=== PATIENT | male | born 1985 | race Two or more races ===

== ENCOUNTER 2017-05-01 08:54 | Observation (INO) | payer OTHER ==
--- NOTE | 2017-05-01 09:17 | PDOC ---
History of Present Illness - General History Source: Patient, EMS Exam Limitations: No Limitations - History of Present Illness Initial Comments: 05/01/17 09:24 The patient is a 31 year old male with no significant past medical history, BIBA to the emergency department today for further evaluation of headache after found unresponsive at work this morning. As per EMS, a co worker called 911 after finding the patient unresponsive with associated slowed breathing and pinpoint pupils. EMS gave the patient a 0.5 mg dose of narcan on route. The patient reports some nausea secondary to his headache. The patient denies any drug use. PAST MEDICAL HISTORY: No significant history reported PAST SURGICAL HISTORY: No significant history reported FAMILY HISTORY: No pertinent history reported SOCIAL HISTORY: Reports previous cokes use (years ago) ALLERGIES: As per nursing notes MEDICATIONS: Reviewed <Austyn Grace - Last Filed: 05/01/17 10:21> - General History Source: Patient, Old Records Exam Limitations: No Limitations, Language Barrier <Oralia Sexton - Last Filed: 05/01/17 17:07> - General Chief Complaint: Overdose Stated Complaint: OVERDOSE Time Seen by Provider: 05/01/17 09:08 Past History <Austyn Grace - Last Filed: 05/01/17 10:21> - Immunization History Immunization Up to Date: No - Psycho/Social/Smoking Cessation Hx Anxiety: No Suicidal Ideation: No Smoking History: Never smoked Have you smoked in the past 12 months: No Hx Alcohol Use: No Drug/Substance Use Hx: No Substance Use Type: None <Oralia Sexton - Last Filed: 05/01/17 17:07> - Past Medical History Allergies/Adverse Reactions: Allergies Allergy/AdvReac Type Severity Reaction Status Date / Time No Known Allergies Allergy Verified 05/01/17 09:26 Home Medications: Ambulatory Orders NK [No Known Home Medication] 05/01/17 Review of Systems - Review of Systems Able to Perform ROS?: Yes Comments:: 05/01/17 09:24 CONSTITUTIONAL: Absent: fever, chills, diaphoresis, generalized weakness, malaise, loss of appetite HEENT: Present: Pinpoint pupils Absent: rhinorrhea, nasal congestion, throat pain, throat swelling, difficulty swallowing, mouth swelling, ear pain, eye pain, visual Changes CARDIOVASCULAR: Absent: chest pain, syncope, palpitations, irregular heart rate, lightheadedness , peripheral edema RESPIRATORY: Present: Slowed breathing Absent: cough, shortness of breath, dyspnea with exertion, orthopnea, wheezing, stridor, hemoptysis GASTROINTESTINAL: Absent: abdominal pain, abdominal distension, \vomiting, diarrhea, constipation , melena, hematochezia GENITOURINARY: Absent: dysuria, frequency, urgency, hesitancy, hematuria, flank pain, genital pain MUSCULOSKELETAL: Absent: myalgia, arthralgia, joint swelling SKIN: Absent: rash, itching, pallor HEMATOLOGIC/IMMUNOLOGIC: Absent: easy bleeding, easy bruising, lymphadenopathy, frequent infections ENDOCRINE: Absent: unexplained weight gain, unexplained weight loss, heat intolerance, cold intolerance NEUROLOGIC: Present: Headache, nasusea Absent: focal weakness or paresthesias, dizziness, unsteady gait, seizure, mental status changes, bladder or bowel incontinence PSYCHIATRIC: Absent: anxiety, depression, suicidal or homicidal ideation, hallucinations. <Austyn Grace - Last Filed: 05/01/17 10:21> *Physical Exam - Physical Exam Comments: 05/01/17 09:24 GENERAL: Well developed, well nourished. Awake and alert. In no acute distress. HEENT: (+) Normocephalic, atraumatic. With bilateral pinpoint pupils. EOMI. No conjunctival pallor. Sclera are non-icteric. Moist mucous membranes. Oropharynx is clear. NECK: Supple. Full ROM. No JVD. Carotid pulses 2+ and symmetric, without bruits. No thyromegaly. No lymphadenopathy. CARDIOVASCULAR: Regular rate and rhythm. No murmurs, rubs, or gallops. Distal pulses are 2+ and symmetric. PULMONARY: No evidence of respiratory distress. Lungs clear to auscultation bilaterally. No wheezing, rales or rhonchi. ABDOMINAL: Soft. Non-tender. Non-distended. No rebound or guarding. No organomegaly. Normoactive bowel sounds. MUSCULOSKELETAL Normal range of motion at all joints. No bony deformities or tenderness. No CVA tenderness. EXTREMITIES: No cyanosis. No clubbing. No edema. No calf tenderness. SKIN: (+) Diaphoretic, warm and dry. Normal capillary refill. No rashes. No jaundice. NEUROLOGICAL: Alert, awake, appropriate. Cranial nerves 2-12 intact. No deficits to light touch and temperature in face, upper extremities and lower extremities. No motor deficits in the in face, upper extremities and lower extremities. Normoreflexic in the upper and lower extremities. Normal speech. Toes are downgoing bilaterally. Gait is normal without ataxia. PSYCHIATRIC: Cooperative. Good eye contact. Appropriate mood and affect. <Austyn Grace - Last Filed: 05/01/17 10:21> Heart Score/ECG Review - ECG Impressions Comment:: 05/01/17 09:33 TEST: ECG. IMPRESSION: Normal sinus rhythm. Possible left atrial enlargement. RSR or QR pattern in V1 suggest right ventricular conduction delay. Borderline ECG. <Austyn Grace - Last Filed: 05/01/17 10:21> ED Treatment Course - LABORATORY CBC & Chemistry Diagram: 05/01/17 09:40 05/01/17 09:40 - RADIOLOGY Radiograph Interpretation: 05/01/17 10:09 EXAM#: TYPE/EXAM: RESULT: [id number] RAD/CHEST X-RAY PORTABLE* HISTORY PROVIDED: Headache. A single frontal portable projection of the chest at 9:32 AM is submitted. The heart size is within normal limits. The lung echols are free of pulmonary infiltrates or pleural effusions. IMPRESSION: Normal chest. Reported By: Polo Rice MD 05/01/17 0958 05/01/17 10:21 EXAM#: TYPE/EXAM: RESULT: [id number] CT/HEAD CT WITHOUT CONTRAST HISTORY PROVIDED : Headache TECHNIQUE: Sequential axial images were obtained from the base of the skull to the vertex. There is no evidence of acute intracranial hemorrhage, mass lesions or infarctions. The visualized paranasal sinuses are clear. IMPRESSION: Normal CT scan of the head. No evidence of acute intracranial pathology. Reported By: Polo Rice MD 05/01/17 1017 <Austyn Grace - Last Filed: 05/01/17 10:21> - LABORATORY CBC & Chemistry Diagram: 05/01/17 09:40 05/01/17 09:40 <Oralia Sexton - Last Filed: 05/01/17 17:07> Medical Decision Making - Medical Decision Making 05/01/17 09:16 31-year-old male presents to the emergency department by EMS with complaints of headache after found unresponsive with depressed respirations responded to Narcan 0.5 mg IV. Differential diagnosis includes but is not limited to: Opioid overdose, opioid use, intracranial process, opioid withdrawal, electrolyte abnormality, dehydration, toxic/metabolic derangement. Plan: 1. Labs 2. Toxicology panel 3 CT head 4. Cardiac and respiratory monitoring 5. Observe and reevaluate 05/01/17 17:05 Addendum: Labs were reviewed and are noted in the EMR. The patient is now more awake, alert and oriented x 3. He does not remember the events of today but says that for the past few weeks he has been having chest pain. Initial CK was elevated but troponin was negative. Will admit to tele obs for serial cardiac enzymes and cardiac echo, syncope work-up. <Oralia Sexton - Last Filed: 05/01/17 17:07> *DC/Admit/Observation/Transfer - Attestations Scribe Attestion: 05/01/17 09:25 Documentation prepared by Austyn Grace, acting as medical driver for Oralia Sexton MD. <Austyn Grace - Last Filed: 05/01/17 10:21> - Discharge Dispostion Admit: Yes - Attestations Physician Attestion: 05/01/17 09:17 I, Dr. Oralia Sexton, attest that the scribes documentation that appears above has been prepared under my direction and personally reviewed by me in its entirety. I confirmed that the note above accurately reflects all work, treatment, procedures, and medical decision-making performed by me. <Oralia Sexton - Last Filed: 05/01/17 17:07> Diagnosis at time of Disposition: Precordial pain, Syncope - Discharge Dispostion Condition at time of disposition: Stable
[2017-05-01] MEDS ORDERED: ONDANSETRON 4 MG/2 ML VIAL IVPUSH ONE (09:18)
[2017-05-01] MEDS ORDERED: SODIUM CHLORIDE 1,000 ML IV STA ×3 (09:18→14:30)
[2017-05-01] MEDS ORDERED: ONDANSETRON 4 MG/2 ML VIAL ONE (09:24)
[2017-05-01 09:26] VITALS: BMI 26.6
[2017-05-01 09:58] LABS: BASOPHIL 0.8 % (0-2.0); EOSINOPHIL 0.8 % (0-4.5); MCH 33.8 pg (25.7-33.7); MEAN CELL VOLUME 96.5 fl (80-96); MEAN PLT VOLUME 8.2 fl (7.5-11.1); NEUTROPHILS 56.8 % (42.8-82.8); PLATELET COUNT 242 K/MM3 (134-434); RDW 12.4 % (11.9-15.9); WHITE BLOOD COUNT 6.8 K/mm3 (4.0-10.0)
[2017-05-01 10:16] LABS: MAGNESIUM 2.1 mg/dL (1.8-2.4); PHOSPHOROUS 3.8 mg/dL (2.5-4.9)
[2017-05-01 10:21] LABS: ALBUMIN 3.8 g/dl (3.4-5.0); ANION GAP 9 (8-16); CALCIUM 8.3 mg/dL (8.5-10.1); CO2 27 mmol/L (21-32); CREATININE 0.8 mg/dL (0.7-1.3); GLUCOSE,RANDOM 135 mg/dL (74-106); SGOT/AST 31 U/L (15-37); SGPT/ALT 37 U/L (12-78); TOT PROT 6.5 g/dl (6.4-8.2)
[2017-05-01 10:24] LABS: ALK PHOS 58 U/L (45-117); TROPONIN I < 0.02 ng/ml (0.00-0.05)
[2017-05-01 13:27] LABS: URINE APPEARANCE CLEAR; URINE BILIRUBIN NEGATIVE (NEGATIVE); URINE BLOOD NEGATIVE (NEGATIVE); URINE COLOR YELLOW; URINE GLUCOSE (UA) NEGATIVE (NEGATIVE); URINE KETONE TRACE (NEGATIVE); URINE LEUK ESTERASE NEGATIVE (NEGATIVE); URINE NITRITE NEGATIVE (NEGATIVE); URINE UROBILINOGEN NEGATIVE E.U./dl (0.2-1.0)
[2017-05-01 13:35] LABS: URINE PROTEIN 1+ (NEGATIVE)
[2017-05-01 13:39] LABS: URINE MUCUS FEW; URINE WBC 3 /hpf (3-5)
[2017-05-01 14:03] LABS: URINE MARIJUANA THC NEGATIVE ng/ml (CUTOFF=50)
--- NOTE | 2017-05-01 14:39 | EKG ---
Test Reason : Blood Pressure : / mmHG Vent. Rate : 086 BPM Atrial Rate : 086 BPM P-R Int : 184 ms QRS Dur : 124 ms QT Int : 384 ms P-R-T Axes : 072 069 058 degrees QTc Int : 459 ms NORMAL SINUS RHYTHM POSSIBLE LEFT ATRIAL ENLARGEMENT RSR' OR QR PATTERN IN V1 SUGGESTS RIGHT VENTRICULAR CONDUCTION DELAY BORDERLINE ECG NO PREVIOUS ECGS AVAILABLE Confirmed by LEBRON ROSADO MD ([id number]) on 05/01/2017 2:38:32 PM Referred By: Confirmed By:LEBRON ROSADO MD
[2017-05-01 16:33] LABS: TROPONIN I < 0.02 ng/ml (0.00-0.05)
--- NOTE | 2017-05-01 18:07 | PN ---
Teaching Attending Note Name of Resident: Matthew Jeong ATTENDING PHYSICIAN STATEMENT I saw and evaluated the patient. I reviewed the resident's note and discussed the case with the resident. I agree with the resident's findings and plan as documented. SUBJECTIVE: This is a 31 year old man with no significant history who was found unresponsive at work this morning. A co-worker called EMS who found him with decreased respirations and pinpoint pupils. He was given Narcan and brought in to the ER. On arrival, he complained of headache and nausea. He reports that while mopping the floor, he became weak. He has been having chest pain. OBJECTIVE: Vital Signs Period Temp Pulse Resp BP Sys/Decker Pulse Ox Last 24 Hr 98.0 F 62-91 11-18 98-128/66-87 95-100 HEART: S1S2, RRR LUNGS: Clear ABDOMEN: Soft, non-tender, non-distended, normal BS EXTREMITIES: No edema ASSESSMENT AND PLAN: This is a 31 year old man with no past history who presented to the ER after passing out while mopping. He reports having chest pain and headache. 1. Syncope - Monitor on telemetry 2. Chest pain with abnormal EKG ([place] depression, RBBB) - Monitor on telemetry - Echocardiogram - Ibuprofen - Cardiology consult
[2017-05-01] MEDS ORDERED: ONDANSETRON 4 MG/2 ML VIAL IVPB PRN (18:22)
[2017-05-01] MEDS ORDERED: ACETAMINOPHEN 325 MG TABLET (FP) PO PRN (18:22)
--- NOTE | 2017-05-01 18:22 | HP ---
CHIEF COMPLAINT: Headache and chest pain PCP: Non-staff physician HISTORY OF PRESENT ILLNESS: 31 yo with no significant medical history BIBEMS after being found unresponsive by coworker at work this morning. Patient speaks limited Kenyan and most history was obtained from ED chart and his friend via phone. 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 He had mild and vague chest pain and headache yesterday and today both the headache and chest pain are worse, the chest pain is located right above the sternal head of clavicle and also behind the chest, sharp, 7-9/10, radiates to the back, reproducible with palpation, intermittent, worse with deep breath and cough, not relieved with leaning forward or sitting up, associated with nausea, vomiting, dizziness and severe headache, which is diffuse and constant. He denies any extertional pain or dyspnea, orthopnea, palpitation, fever, chills, diaphoresis, vision change, drug use, h/o seizure, stroke or genetic heart disease. ER course was notable for: (1) Narcan given en route to ED, AAO x 3 hours later in ED (2) Abnormal ECG: diffuse GA depression and RBBB pattern Recent Travel: Denies PAST MEDICAL HISTORY: None PAST SURGICAL HISTORY: None Social History: Smoking: Denies Alcohol: Denies Drugs: Denies Family History: Non-contributory Allergies No Known Allergies Allergy (Verified 05/01/17 09:26) HOME MEDICATIONS: Home Medications Medication Instructions Recorded NK [No Known Home Medication] 05/01/17 REVIEW OF SYSTEMS CONSTITUTIONAL: Absent: fever, chills, diaphoresis, generalized weakness, malaise, loss of appetite, weight change HEENT: Absent: rhinorrhea, nasal congestion, throat pain, throat swelling, difficulty swallowing, mouth swelling, ear pain, eye pain, visual changes CARDIOVASCULAR: chest pain, syncope, lightheadedness Absent:, palpitations, irregular heart rate, , peripheral edema RESPIRATORY: cough, shortness of breath Absent: dyspnea with exertion, orthopnea, wheezing, stridor, hemoptysis GASTROINTESTINAL: Absent: abdominal pain, abdominal distension, nausea, vomiting, diarrhea, constipation, melena, hematochezia GENITOURINARY: Absent: dysuria, frequency, urgency, hesitancy, hematuria, flank pain, genital pain MUSCULOSKELETAL: Absent: myalgia, arthralgia, joint swelling, back pain, neck pain SKIN: Absent: rash, itching, pallor HEMATOLOGIC/IMMUNOLOGIC: Absent: easy bleeding, easy bruising, lymphadenopathy, frequent infections ENDOCRINE: Absent: unexplained weight gain, unexplained weight loss, heat intolerance, cold intolerance NEUROLOGIC: headache Absent: focal weakness or paresthesias, dizziness, unsteady gait, seizure, mental status changes, bladder or bowel incontinence PSYCHIATRIC: Absent: anxiety, depression, suicidal or homicidal ideation, hallucinations. PHYSICAL EXAMINATION Last Vital Signs Temp Pulse Resp BP Pulse Ox 98.0 F 72 14 113/66 100 05/01/17 09:00 05/01/17 17:09 05/01/17 17:09 05/01/17 17:09 05/01/17 17:49 GENERAL: AAO x 3, in no acute distress. HEAD: Normal with no signs of trauma. EYES: PERRLA, sclera anicteric, conjunctiva clear. EARS, NOSE, THROAT: oropharynx clear without exudates. Moist mucous membranes. NECK: Normal range of motion, supple without lymphadenopathy, JVD, or masses. LUNGS:CTAB HEART: Regular rate and rhythm, normal S1 and S2, ?Fixed S2 Split ABDOMEN: Soft, nontender, not distended, normoactive bowel sounds, no guarding, no rebound, no masses. EXTREMITIES: 2+ pulses, warm, well-perfused. No calf tenderness. No peripheral edema. NEUROLOGICAL: Cranial nerves II-XII intact. Normal speech PSYCHIATRIC: Cooperative. Good eye contact. Anxious SKIN: Warm, dry, normal turgor, no rashes or lesions noted, normal capillary refill. CBCD WBC 6.8 K/mm3 (4.0-10.0) 05/01/17 09:40 RBC 4.20 M/mm3 (4.00-5.60) 05/01/17 09:40 Hgb 14.2 GM/dL (11.7-16.9) 05/01/17 09:40 Hct 40.5 % (35.4-49) 05/01/17 09:40 MCV 96.5 fl (80-96) H 05/01/17 09:40 MCHC 35.0 g/dl (32.0-35.9) 05/01/17 09:40 RDW 12.4 % (11.9-15.9) 05/01/17 09:40 Plt Count 242 K/MM3 (134-434) 05/01/17 09:40 MPV 8.2 fl (7.5-11.1) 05/01/17 09:40 CMP Sodium 141 mmol/L (136-145) 05/01/17 09:40 Potassium 3.5 mmol/L (3.5-5.1) 05/01/17 09:40 Chloride 105 mmol/L (98-107) 05/01/17 09:40 Carbon Dioxide 27 mmol/L (21-32) 05/01/17 09:40 Anion Gap 9 (8-16) 05/01/17 09:40 BUN 14 mg/dL (7-18) 05/01/17 09:40 Creatinine 0.8 mg/dL (0.7-1.3) 05/01/17 09:40 Creat Clearance w eGFR > 60 (>60) 05/01/17 09:40 Calcium 8.3 mg/dL (8.5-10.1) L 05/01/17 09:40 Total Bilirubin 1.0 mg/dL (0.2-1.0) 05/01/17 09:40 AST 31 U/L (15-37) 05/01/17 09:40 ALT 37 U/L (12-78) 05/01/17 09:40 Alkaline Phosphatase 58 U/L (45-117) 05/01/17 09:40 Total Protein 6.5 g/dl (6.4-8.2) 05/01/17 09:40 Albumin 3.8 g/dl (3.4-5.0) 05/01/17 09:40 Troponin, BNP 05/01/17 05/01/17 05/01/17 09:40 09:40 15:30 Troponin I < 0.02 Cancelled < 0.02 Urine Test Results Urine Color Yellow 05/01/17 12:21 Urine Appearance Clear 05/01/17 12:21 Urine pH 5.0 (5.0-8.0) 05/01/17 12:21 Urine Protein 1+ (NEGATIVE) H 05/01/17 12:21 Urine Glucose (UA) Negative (NEGATIVE) 05/01/17 12:21 Urine Ketones Trace (NEGATIVE) H 05/01/17 12:21 Urine Blood Negative (NEGATIVE) 05/01/17 12:21 Urine Nitrite Negative (NEGATIVE) 05/01/17 12:21 Urine Bilirubin Negative (NEGATIVE) 05/01/17 12:21 Ur Leukocyte Esterase Negative (NEGATIVE) 05/01/17 12:21 Urine RBC None /hpf (0-3) 05/01/17 12:21 Urine WBC 3 /hpf (3-5) 05/01/17 12:21 Urine Mucus Few 05/01/17 12:21 Urine Toxicology: Negative for all drugs Imaging: CXR on 05/01: Normal CT head on 05/01: Normal EKG official read on 05/01: NSR, possible LAE, RSR' or QR pattern in V1 suggest ventricular conduction delay (my read: diffuse GA depression + RBBB pattern) ASSESSMENT/PLAN: 31 yo M admitted to telemetry for syncope workup. Syncope - Vasovagal vs. Seizure vs. Stroke vs. Arrhythmia vs. Pericarditis - Troponins -ve x 2 - Orthostatic BP - Ibuprofen 600mg Q8H - f/u ECHO, carotid doppler, repeat EKG - Cont. cardiac monitoring - Cardiology consult FEN - IVF not indicated - Normal lytes - Regular diet, NPO after mid-night for possible RIVKA Prophylaxis - DVT: SCDs - GI: not indicated Dispo - Telemetry monitoring Visit type - Emergency Visit Emergency Visit: Yes ED Registration Date: 05/01/17 Care time: The patient presented to the Emergency Department on the above date and was hospitalized for further evaluation of their emergent condition. - New Patient This patient is new to me today: Yes Date on this admission: 05/02/17 - Critical Care Critical Care patient: No
[2017-05-01] MEDS ORDERED: IBUPROFEN 600 MG TABLET (FP) PO ONE (20:49)
[2017-05-01] MEDS: IBUPROFEN 600 MG TABLET (FP) PO SCH (20:51)
[2017-05-02] MEDS ORDERED: IBUPROFEN 600 MG TABLET (FP) PO ONE (02:56)
[2017-05-02] MEDS: IBUPROFEN 600 MG TABLET (FP) PO SCH ×2 (02:58→11:00)
[2017-05-02 07:14] LABS: ANION GAP 5 (8-16); CALCIUM 8.7 mg/dL (8.5-10.1); CO2 32 mmol/L (21-32); CREATININE 0.7 mg/dL (0.7-1.3); GLUCOSE,RANDOM 88 mg/dL (74-106); MAGNESIUM 2.3 mg/dL (1.8-2.4)
--- NOTE | 2017-05-02 09:16 | CON.CARD ---
Consult Consult Specialty:: Cardiology - History of Present Illness History of Present Illness: The patient is a 31 year old male with no significant past medical history, BIBA to the emergency department today for further evaluation of headache after found unresponsive at work this morning. As per EMS, a co worker called 911 after finding the patient unresponsive with associated slowed breathing and pinpoint pupils. EMS gave the patient a 0.5 mg dose of narcan on route. The patient reports some nausea secondary to his headache. The patient denies any drug use. - History Source History Provided By: Patient, Medical Record - Alcohol/Substance Use Hx Alcohol Use: No - Smoking History Smoking history: Never smoked Have you smoked in the past 12 months: No Home Medications - Allergies Allergies/Adverse Reactions: Allergies Allergy/AdvReac Type Severity Reaction Status Date / Time No Known Allergies Allergy Verified 05/01/17 09:26 - Home Medications Home Medications: Ambulatory Orders NK [No Known Home Medication] 05/01/17 Review of Systems - Review of Systems Constitutional: reports: No Symptoms Eyes: reports: No Symptoms HENT: reports: No Symptoms Neck: reports: No Symptoms Cardiovascular: reports: No Symptoms Gastrointestinal: reports: No Symptoms Genitourinary: reports: No Symptoms Breasts: reports: No Symptoms Reported Musculoskeletal: reports: No Symptoms Integumentary: reports: No Symptoms Neurological: reports: No Symptoms Endocrine: reports: No Symptoms Hematology/Lymphatic: reports: No Symptoms Psychiatric: reports: No Symptoms Vital Signs: Vital Signs Temperature 98.0 F 05/02/17 08:44 Pulse Rate 65 05/02/17 08:44 Respiratory Rate 20 05/02/17 08:54 Blood Pressure 114/72 05/02/17 08:44 O2 Sat by Pulse Oximetry (%) 100 05/02/17 08:54 Constitutional: Yes: Well Nourished, No Distress, Calm Eyes: Yes: WNL, Conjunctiva Clear, EOM Intact HENT: Yes: WNL, Atraumatic, Normocephalic Neck: Yes: WNL, Supple, Trachea Midline Respiratory: Yes: WNL, Regular, CTA Bilaterally Gastrointestinal: Yes: WNL, Normal Bowel Sounds Renal/: Yes: WNL Cardiovascular: Yes: WNL, Regular Rate and Rhythm Musculoskeletal: Yes: WNL Extremities: Yes: WNL Integumentary: Yes: WNL Neurological: Yes: WNL, Alert, Oriented ...Motor Strength: WNL Psychiatric: Yes: WNL, Alert, Oriented - Other Data Labs, Other Data: CBC, BMP 05/02/17 06:15 Laboratory Tests 05/01/17 05/01/17 05/01/17 09:40 09:40 09:40 WBC 6.8 RBC 4.20 Hgb 14.2 Hct 40.5 MCV 96.5 H MCHC 35.0 RDW 12.4 Plt Count 242 MPV 8.2 Neutrophils % 56.8 Lymphocytes % 36.7 Monocytes % 4.9 Eosinophils % 0.8 Basophils % 0.8 ESR Sodium 141 Potassium 3.5 Chloride 105 Carbon Dioxide 27 Anion Gap 9 BUN 14 Creatinine 0.8 Creat Clearance w eGFR > 60 Random Glucose 135 H Calcium 8.3 L Phosphorus 3.8 Magnesium 2.1 Total Bilirubin 1.0 AST 31 ALT 37 Alkaline Phosphatase 58 Creatine Kinase 369 H Creatine Kinase Index 1.7 CK-MB (CK-2) 6.251 H CK-MB (CK-2) Rel Index Troponin I < 0.02 C-Reactive Protein Total Protein 6.5 Albumin 3.8 Urine Color Urine Appearance Urine pH Ur Specific [place] Urine Protein Urine Glucose (UA) Urine Ketones Urine Blood Urine Nitrite Urine Bilirubin Urine Urobilinogen Ur Leukocyte Esterase Urine RBC Urine WBC Urine Mucus Opiates Screen Methadone Screen Barbiturate Screen Phencyclidine Screen Ur Amphetamines Screen MDMA (Ecstasy) Screen Benzodiazepines Screen Cocaine Screen U Marijuana (THC) Screen 05/01/17 05/01/17 05/01/17 09:40 09:40 12:21 WBC RBC Hgb Hct MCV MCHC RDW Plt Count MPV Neutrophils % Lymphocytes % Monocytes % Eosinophils % Basophils % ESR Sodium Potassium Chloride Carbon Dioxide Anion Gap BUN Creatinine Creat Clearance w eGFR Random Glucose Calcium Phosphorus Magnesium Total Bilirubin AST ALT Alkaline Phosphatase Creatine Kinase Cancelled Creatine Kinase Index CK-MB (CK-2) CK-MB (CK-2) Rel Index Cancelled Troponin I Cancelled C-Reactive Protein Total Protein Albumin Urine Color Urine Appearance Urine pH Ur Specific [place] Urine Protein Urine Glucose (UA) Urine Ketones Urine Blood Urine Nitrite Urine Bilirubin Urine Urobilinogen Ur Leukocyte Esterase Urine RBC Urine WBC Urine Mucus Opiates Screen Negative Methadone Screen Negative Barbiturate Screen Negative Phencyclidine Screen Negative Ur Amphetamines Screen Negative MDMA (Ecstasy) Screen Negative Benzodiazepines Screen Negative Cocaine Screen Negative U Marijuana (THC) Screen Negative 05/01/17 05/01/17 05/01/17 12:21 15:30 15:30 WBC RBC Hgb Hct MCV MCHC RDW Plt Count MPV Neutrophils % Lymphocytes % Monocytes % Eosinophils % Basophils % ESR Sodium Potassium Chloride Carbon Dioxide Anion Gap BUN Creatinine Creat Clearance w eGFR Random Glucose Calcium Phosphorus Magnesium Total Bilirubin AST ALT Alkaline Phosphatase Creatine Kinase 287 D Creatine Kinase Index CK-MB (CK-2) CK-MB (CK-2) Rel Index Cancelled Troponin I < 0.02 C-Reactive Protein Total Protein Albumin Urine Color Yellow Urine Appearance Clear Urine pH 5.0 Ur Specific [place] >= 1.030 H Urine Protein 1+ H Urine Glucose (UA) Negative Urine Ketones Trace H Urine Blood Negative Urine Nitrite Negative Urine Bilirubin Negative Urine Urobilinogen Negative Ur Leukocyte Esterase Negative Urine RBC None Urine WBC 3 Urine Mucus Few Opiates Screen Methadone Screen Barbiturate Screen Phencyclidine Screen Ur Amphetamines Screen MDMA (Ecstasy) Screen Benzodiazepines Screen Cocaine Screen U Marijuana (THC) Screen 05/02/17 05/02/17 05/02/17 06:15 06:15 06:15 WBC RBC Hgb Hct MCV MCHC RDW Plt Count MPV Neutrophils % Lymphocytes % Monocytes % Eosinophils % Basophils % ESR 3 Sodium 141 Potassium 4.2 Chloride 104 Carbon Dioxide 32 Anion Gap 5 L BUN 9 D Creatinine 0.7 Creat Clearance w eGFR Random Glucose 88 D Calcium 8.7 Phosphorus Magnesium 2.3 Total Bilirubin AST ALT Alkaline Phosphatase Creatine Kinase Creatine Kinase Index CK-MB (CK-2) CK-MB (CK-2) Rel Index Troponin I C-Reactive Protein < 0.3 Total Protein Albumin Urine Color Urine Appearance Urine pH Ur Specific [place] Urine Protein Urine Glucose (UA) Urine Ketones Urine Blood Urine Nitrite Urine Bilirubin Urine Urobilinogen Ur Leukocyte Esterase Urine RBC Urine WBC Urine Mucus Opiates Screen Methadone Screen Barbiturate Screen Phencyclidine Screen Ur Amphetamines Screen MDMA (Ecstasy) Screen Benzodiazepines Screen Cocaine Screen U Marijuana (THC) Screen Imaging - Results Chest X-ray: Image Reviewed (no i/e) EKG: Image Reviewed (sr incoplete rbbb) Problem List - Problems (1) Precordial pain Code(s): R07.2 - PRECORDIAL PAIN (2) Syncope Code(s): R55 - SYNCOPE AND COLLAPSE (3) Laceration of knee without complication Code(s): S81.019A - LACERATION WITHOUT FOREIGN BODY, UNSP KNEE, INIT ENCNTR Qualifiers: Encounter type: initial encounter Laterality: left Qualified Code(s ): S81.012A - Laceration without foreign body, left knee, initial encounter
--- NOTE | 2017-05-02 13:35 | EKG ---
Test Reason : Blood Pressure : / mmHG Vent. Rate : 065 BPM Atrial Rate : 065 BPM P-R Int : 168 ms QRS Dur : 114 ms QT Int : 406 ms P-R-T Axes : 070 086 065 degrees QTc Int : 422 ms NORMAL SINUS RHYTHM INCOMPLETE RIGHT BUNDLE BRANCH BLOCK BORDERLINE ECG WHEN COMPARED WITH ECG OF 01-MAY-2017 09:23, NO SIGNIFICANT CHANGE WAS FOUND Confirmed by KIRT VANG MD ([id number]) on 05/02/2017 1:34:56 PM Referred By: Kieran SALES Confirmed By:KIRT VANG MD
--- NOTE | 2017-05-02 14:23 | PN ---
Physical Exam: SUBJECTIVE: Patient seen and examined in ED. He stated that he's been feeling fine since he was brought in the ED. Denies chest pain, sob, headache, palpitation, fever, or chills. Per ED nurse, no acute event overnight. OBJECTIVE: Vital Signs Period Temp Pulse Resp BP Sys/Decker Pulse Ox Last 24 Hr 97.8 F-98.2 F 55-72 16-20 86-119/46-72 100-100 GENERAL: AAO x 3, in no acute distress. HEAD: Normal with no signs of trauma. EYES: PERRLA, sclera anicteric, conjunctiva clear. EARS, NOSE, THROAT: oropharynx clear without exudates. Moist mucous membranes. NECK: Normal range of motion, supple without lymphadenopathy, JVD, or masses. LUNGS:CTAB HEART: Regular rate and rhythm, normal S1 and S2, ?Fixed S2 Split ABDOMEN: Soft, nontender, not distended, normoactive bowel sounds, no guarding, no rebound, no masses. EXTREMITIES: 2+ pulses, warm, well-perfused. No calf tenderness. No peripheral edema. NEUROLOGICAL: Cranial nerves II-XII intact. Normal speech PSYCHIATRIC: Cooperative. Good eye contact. Calm SKIN: Warm, dry, normal turgor, no rashes or lesions noted, normal capillary refill. CBCD WBC 6.8 K/mm3 (4.0-10.0) 05/01/17 09:40 RBC 4.20 M/mm3 (4.00-5.60) 05/01/17 09:40 Hgb 14.2 GM/dL (11.7-16.9) 05/01/17 09:40 Hct 40.5 % (35.4-49) 05/01/17 09:40 MCV 96.5 fl (80-96) H 05/01/17 09:40 MCHC 35.0 g/dl (32.0-35.9) 05/01/17 09:40 RDW 12.4 % (11.9-15.9) 05/01/17 09:40 Plt Count 242 K/MM3 (134-434) 05/01/17 09:40 MPV 8.2 fl (7.5-11.1) 05/01/17 09:40 CMP Sodium 141 mmol/L (136-145) 05/02/17 06:15 Potassium 4.2 mmol/L (3.5-5.1) 05/02/17 06:15 Chloride 104 mmol/L (98-107) 05/02/17 06:15 Carbon Dioxide 32 mmol/L (21-32) 05/02/17 06:15 Anion Gap 5 (8-16) L 05/02/17 06:15 BUN 9 mg/dL (7-18) D 05/02/17 06:15 Creatinine 0.7 mg/dL (0.7-1.3) 05/02/17 06:15 Creat Clearance w eGFR > 60 (>60) 05/01/17 09:40 Calcium 8.7 mg/dL (8.5-10.1) 05/02/17 06:15 Total Bilirubin 1.0 mg/dL (0.2-1.0) 05/01/17 09:40 AST 31 U/L (15-37) 05/01/17 09:40 ALT 37 U/L (12-78) 05/01/17 09:40 Alkaline Phosphatase 58 U/L (45-117) 05/01/17 09:40 Total Protein 6.5 g/dl (6.4-8.2) 05/01/17 09:40 Albumin 3.8 g/dl (3.4-5.0) 05/01/17 09:40 Urine Test Results Urine Color Yellow 05/01/17 12:21 Urine Appearance Clear 05/01/17 12:21 Urine pH 5.0 (5.0-8.0) 05/01/17 12:21 Ur Specific Woodman >= 1.030 (1.005-1.025) H 05/01/17 12:21 Urine Protein 1+ (NEGATIVE) H 05/01/17 12:21 Urine Glucose (UA) Negative (NEGATIVE) 05/01/17 12:21 Urine Ketones Trace (NEGATIVE) H 05/01/17 12:21 Urine Blood Negative (NEGATIVE) 05/01/17 12:21 Urine Nitrite Negative (NEGATIVE) 05/01/17 12:21 Urine Bilirubin Negative (NEGATIVE) 05/01/17 12:21 Ur Leukocyte Esterase Negative (NEGATIVE) 05/01/17 12:21 Urine RBC None /hpf (0-3) 05/01/17 12:21 Urine WBC 3 /hpf (3-5) 05/01/17 12:21 Urine Mucus Few 05/01/17 12:21 Troponin, BNP 05/01/17 15:30 Troponin I < 0.02 Active Medications Generic Name Dose Route Start Last Admin Trade Name Merlyn PRN Reason Stop Dose Admin Ibuprofen 600 mg 05/01/17 19:00 05/02/17 11:00 Motrin - PO 600 mg Q8H PRERNA Administration Ondansetron HCl 4 mg 05/01/17 18:22 Zofran Injection IVPB Q6H PRN NAUSEA Urine Toxicology: Negative for all drugs Imaging: ECHO on 05/02: Normal Carotid doppler on 05/02: No significant stenosis Repeat EKG on 05/02: No significant change CXR on 05/01: Normal CT head on 05/01: Normal EKG official read on 05/01: NSR, possible LAE, RSR' or QR pattern in V1 suggest ventricular conduction delay (my read: diffuse [place] depression + RBBB pattern) ASSESSMENT/PLAN: 31 yo M admitted to telemetry for syncope workup. Syncope - Most likely 2/2 Seizure * Coworker stated pt's belly was "convulsing" but not limbs * Confused for ~2 hours upon ED admission * Denies h/o seizure, urinary or bowel incontinence - Likely pericarditis * Diffuse [place] depression - Cardiac less likely * Cardiac work up negative - Vasovagal less likely * Orthostatic BP negative - Arrhythmia less likely * teletypesetter monitor shows no event - Stroke less likely * CT head negative - Cardiology consult - Neuro consult FEN - IVF not indicated - Normal lytes - Regular diet, NPO after midnight for stress tomorrow Prophylaxis - DVT: SCDs - GI: not indicated Dispo - Telemetry monitoring Visit type - Emergency Visit Emergency Visit: No - New Patient This patient is new to me today: No - Critical Care Critical Care patient: No
[2017-05-02] MEDS ORDERED: IBUPROFEN 600 MG TABLET (FP) PO PRN (16:45)
--- NOTE | 2017-05-02 18:08 | PN ---
Teaching Attending Note Name of Resident: Matthew Jeong ATTENDING PHYSICIAN STATEMENT I saw and evaluated the patient. I reviewed the resident's note and discussed the case with the resident. I agree with the resident's findings and plan as documented. SUBJECTIVE: Patient has no complaints. OBJECTIVE: Vital Signs Period Temp Pulse Resp BP Sys/Decker Pulse Ox Last 24 Hr 97.8 F-98.2 F 55-77 16-20 86-119/46-73 100-100 HEART: S1S2, RRR LUNGS: Clear ABDOMEN: Soft, non-tender, non-distended, normal BS EXTREMITIES: No edema ASSESSMENT AND PLAN: This is a 31 year old man with no past history who presented to the ER after passing out while mopping. He reports having chest pain and headache. 1. Syncope - Head CT normal - Carotid doppler shows no hemodynamically significant stenosis - Co-worker today reports that during the episode yesterday, his stomach was "convulsing". There was no incontinence or tongue biting - Neurology consult 2. Chest pain with abnormal EKG - EKG today shows IRBBB - Continue telemetry - Troponin negative x 2 - Echocardiogram shows Chiari network, prominent eustachian valve, normal LV , normal LVEF, normal RV, trace to mild MR, trace to mild TR - On Ibuprofen - Cardiology consult
--- NOTE | 2017-05-03 08:37 | CON.NEURO ---
Consult - History of Present Illness History of Present Illness: 31 year old male , was clearning floor and he fell down and pass out. He complain of chest pain and headache. he was given narcon by ems, and apparently there was some improvement, he had ct scan in er it was normal, he had carotid ultrasound it was unremarkable. He denies any history of seizures, no tongue bite or incontinence. - Alcohol/Substance Use Hx Alcohol Use: No - Smoking History Smoking history: Never smoked Have you smoked in the past 12 months: No Home Medications - Allergies Allergies/Adverse Reactions: Allergies Allergy/AdvReac Type Severity Reaction Status Date / Time No Known Allergies Allergy Verified 05/01/17 09:26 - Home Medications Home Medications: Ambulatory Orders NK [No Known Home Medication] 05/01/17 Physical Exam-Neuro Vital Signs: Vital Signs Temperature 98.6 F 05/03/17 05:00 Pulse Rate 65 05/03/17 05:00 Respiratory Rate 18 05/03/17 05:00 Blood Pressure 114/65 05/03/17 05:00 O2 Sat by Pulse Oximetry (%) 98 05/03/17 06:36 Labs: CBC, BMP 05/02/17 06:15 NIH Stroke Scale - Total Score NIH Stroke Scale Score: 0 Imaging - Results Cat Scan: Report Reviewed Assessment/Plan cc episode of passing out 31 year old male , was clearning floor and he fell down and pass out. He complain of chest pain and headache. he was given narcon by ems, and apparently there was some improvement, he had ct scan in er it was normal, he had carotid ultrasound it was unremarkable. He denies any history of seizures, no tongue bite or incontinence. No significant past medical history or surgical history no allergies denies drug use no home medication ROS reviewed in chart Neurological examination Alert oriented x 3, follow command CN all intact, eomi, no face asymmetry moving all extremity 5/[address] is normal carotid ultrasound is normal Asseessment/Plan Most likely it was episode of syncope Plan- unlikely to be epilepsy, no need for mri of brain or eeg - eeg can be done outpatient - no need for antiepileptic medication Thanks for consult Jared Doherty MD
--- NOTE | 2017-05-03 10:24 | PN ---
Progress Note, Physician Chief Complaint: Pt A&OX3; OOB in chair; awaits stress treadmill ECHO; no chest pain or dyspnea; no dizziness. History of Present Illness: The patient is a 31 year old male (b. Rober), with no significant past medical history, BIBA to the emergency department today for further evaluation of headache after found unresponsive at work this morning. As per EMS, a co worker called 911 after finding the patient unresponsive with associated slowed breathing and pinpoint pupils. EMS gave the patient a 0.5 mg dose of narcan on route. The patient reports some nausea secondary to his headache. The patient denies any drug use. PAST MEDICAL HISTORY: No significant history reported PAST SURGICAL HISTORY: No significant history reported FAMILY HISTORY: No pertinent history reported SOCIAL HISTORY: Reports previous cocaine use (years ago); denies opiates. ALLERGIES: As per nursing notes MEDICATIONS: Reviewed Pt works out regularly at a gym, and denies chest pain, dizziness, palpitations , or dyspnea during or after workouts. His work is also physically demanding ( fence laborer). - Current Medication List Current Medications: Active Medications Ibuprofen (Motrin -) 600 mg PO Q8H PRN PRN Reason: PAIN Ondansetron HCl (Zofran Injection) 4 mg IVPB Q6H PRN PRN Reason: NAUSEA - Objective Vital Signs: Vital Signs Temperature 98.6 F 05/03/17 05:00 Pulse Rate 65 05/03/17 05:00 Respiratory Rate 18 05/03/17 05:00 Blood Pressure 114/65 05/03/17 05:00 O2 Sat by Pulse Oximetry (%) 98 05/03/17 06:36 Constitutional: Yes: Calm Eyes: Yes: WNL HENT: Yes: WNL Neck: Yes: WNL Cardiovascular: Yes: Regular Rate and Rhythm Respiratory: Yes: WNL Gastrointestinal: Yes: WNL ...Rectal Exam: Yes: Deferred Genitourinary: Yes: WNL Breast(s): Yes: WNL Musculoskeletal: Yes: WNL Extremities: Yes: WNL Edema: No Peripheral Pulses WNL: Yes Integumentary: Yes: WNL Neurological: Yes: WNL ...Motor Strength: WNL Psychiatric: Yes: WNL Labs: CBC, BMP 05/02/17 06:15 - ....Imaging Ultrasound: Report Reviewed (ECHO: normal LVEF and chamber sizes), Image Reviewed EKG: Image Reviewed (NSR; incomplete RBBB) Problem List - Problems (1) Precordial pain Assessment/Plan: Awaits stress treadmill ECHO today; if no significant ischemia, pt may be followed as an outpatient from a cardiac perspective. Addendum: TSH wnl; total cholesterol < 150 mg/dL. Code(s): R07.2 - PRECORDIAL PAIN (2) Syncope Assessment/Plan: ? work-related. Avoid dehydration (BUN 14-->9). No telemetry abnormalities. Await ECHO stress treadmill. F/u orthostatic VS. Code(s): R55 - SYNCOPE AND COLLAPSE (3) Laceration of knee without complication Code(s): S81.019A - LACERATION WITHOUT FOREIGN BODY, UNSP KNEE, INIT ENCNTR Qualifiers: Encounter type: initial encounter Laterality: left Qualified Code(s ): S81.012A - Laceration without foreign body, left knee, initial encounter
--- NOTE | 2017-05-03 11:23 | PN ---
Teaching Attending Note Name of Resident: Matthew Jeong ATTENDING PHYSICIAN STATEMENT I saw and evaluated the patient. I reviewed the resident's note and discussed the case with the resident. I agree with the resident's findings and plan as documented. SUBJECTIVE: No complaints. OBJECTIVE: Vital Signs Period Temp Pulse Resp BP Sys/Decker Pulse Ox Last 24 Hr 97.5 F-98.6 F 61-72 18-20 102-118/57-74 98-100 HEART: S1S2, RRR LUNGS: Clear ABDOMEN: Soft, non-tender, non-distended, normal BS EXTREMITIES: No edema ASSESSMENT AND PLAN: This is a 31 year old man with no past history who presented to the ER after passing out while mopping. He reports having chest pain and headache. 1. Syncope - Head CT normal - Carotid doppler shows no hemodynamically significant stenosis - Neurology consult appreciated - plan for EEG as outpatient 2. Chest pain with abnormal EKG - Troponin negative x 2 - Echocardiogram shows Chiari network, prominent eustachian valve, normal LV , normal LVEF, normal RV, trace to mild MR, trace to mild TR - On Ibuprofen - Cardiology consult appreciated - plan for stress echo today, and if unremarkable, patient can be discharged
[2017-05-03 11:46] LABS: THYROID STIMULATING HORMONE 0.73 uIU/ml (0.358-3.74)
--- NOTE | 2017-05-03 11:57 | PN ---
Physical Exam: SUBJECTIVE: No complaint. Denies chest pain, sob, headache, palpitation, fever, or chills. Per ED nurse, no acute event on youth nutritional monitor. OBJECTIVE: Vital Signs Period Temp Pulse Resp BP Sys/Deckre Pulse Ox Last 24 Hr 97.5 F-98.6 F 61-72 18-20 102-118/57-74 98-100 GENERAL:AAO x3 , in no acute distress. HEAD: Normal with no signs of trauma. EYES:PERLLA, sclera anicteric, conjunctiva clear. EARS, NOSE, THROAT: oropharynx clear without exudates. Moist mucous membranes. NECK: Normal range of motion, supple without lymphadenopathy, JVD, or masses. LUNGS:CTAB HEART: Regular rate and rhythm, normal S1 and S2 ABDOMEN: Soft, nontender, not distended, normoactive bowel sounds, no guarding, no rebound, no masses. EXTREMITIES: 2+ pulses, warm, well-perfused. No calf tenderness. No peripheral edema. NEUROLOGICAL: Cranial nerves II-XII intact. Normal speech PSYCHIATRIC: Cooperative. Good eye contact. Calm SKIN: Warm, dry, normal turgor, no rashes or lesions noted, normal capillary refill. Laboratory Results - last 24 hr 05/03/17 10:40 Triglycerides 59 Cholesterol 146 Total LDL Cholesterol 83 HDL Cholesterol 60 TSH 0.73 Active Medications Generic Name Dose Route Start Last Admin Trade Name Freq PRN Reason Stop Dose Admin Ibuprofen 600 mg 05/02/17 16:45 Motrin - PO Q8H PRN PAIN Ondansetron HCl 4 mg 05/01/17 18:22 Zofran Injection IVPB Q6H PRN NAUSEA Urine Toxicology: Negative for all drugs Imaging: ECHO on 05/02: Normal Carotid doppler on 05/02: No significant stenosis Repeat EKG on 05/02: No significant change CXR on 05/01: Normal CT head on 05/01: Normal EKG official read on 05/01: NSR, possible LAE, RSR' or QR pattern in V1 suggest ventricular conduction delay (my read: diffuse [place] depression + RBBB pattern) ASSESSMENT/PLAN: 31 yo M admitted to telemetry for syncope workup. Syncope - Unknown etiology * cardiac workup has been negative * pending stress ECHO * neurology ruled out neurogenic etiology FEN - IVF not indicated - Normal lytes - Regular diet Prophylaxis - DVT: SCDs - GI: not indicated Dispo - Discharge after stress ECHo Visit type - Emergency Visit Emergency Visit: No - New Patient This patient is new to me today: No - Critical Care Critical Care patient: No - Discharge Referral Referred to [facility] Med P.C[facility] No
[2017-05-03 12:39] VITALS: BP 120/60; PULSE 70; TEMP 98
--- NOTE | 2017-05-03 15:47 | DS ---
Physical Exam: HOSPITAL COURSE: Date of Admission:05/01/17 31 yo M admitted to telemetry for observation after being found unresponsive on the floor. He was brought in by EMS and in 2 hours he regained consciousness. His urine toxicology was negative for any drug use. All cardiac workup has been negative including ECHO, stress, and carotid doppler. Neurology was consulted and ruled out seizure and stroke. Patient is in stable condition to be discharged home and follow up with cardiology and neurology as outpatient to investigate further in why he lost consciousness. Date of Discharge: 05/03/17 Minutes to complete discharge: 35 Discharge Summary Reason For Visit: SYNCOPE/ PRECORDIAL PAIN Current Active Problems Precordial pain (Acute) Syncope (Acute) Condition: Stable - Instructions Diet, Activity, Other Instructions: Instruction for continuing care: You were admitted to the hospital for syncope. All workup as been negative and you are now in stable condition to be discharged home. Drink plenty of fluids everyday and follow up with Dr. Doherty and Dr. De Paz within a week. Referrals: Jared Doherty MD [Staff Physician] - Matthew De Paz MD [Staff Physician] - Disposition: HOME - Home Medications Comprehensive Discharge Medication List: Ambulatory Orders NK [No Known Home Medication] 05/01/17 This patient is new to me today: No Emergency Visit: No Critical Care patient: No - Discharge Referral Referred to [facility] Med P.C[facility] No
== END 2017-05-03 17:04 | disposition home or self-care (01) ==
LOC: JER 08:54 → JERBED 20:29 → UNDOADMOB 20:43 → JERBED 20:43 → J4W 05-03 00:37
PROVIDERS: ADMIT Internal Medicine; ATTEND Internal Medicine
PROC: 3E033GC Introduction of Other Therapeutic Substance into Peripheral Vein, Percutaneous Approach (ICD-10-PCS; principal; 2017-05-01)
PROC: 3E0337Z Introduction of Electrolytic and Water Balance Substance into Peripheral Vein, Percutaneous Approach (ICD-10-PCS; 2017-05-01)
DX: R55 Syncope and collapse (principal); R07.2 Precordial pain; S81.012A Laceration without foreign body, left knee, initial encounter; W19.XXXA Unspecified fall, initial encounter; Y93.9 Activity, unspecified; Y92.9 Unspecified place or not applicable; Y99.0 Civilian activity done for income or pay; I45.10 Unspecified right bundle-branch block; R94.31 Abnormal electrocardiogram [ECG] [EKG]
CPT/HCPCS: 36415; 70450-TC; 71010-TC; 80048; 80053; 80061; 80307; 81003; 81015; 82550; 82553; 83721; 83735; 84100; 84443; 84484; 85025; 85651; 86140; 93005; 93010; 93306-TC; 93351; 93880-TC; 99285-25; G0378